=== PATIENT | female | born 1990 | race African-American/Black ===

== ENCOUNTER 2019-01-29 12:50 | Emergency (ER) | payer OTHER, SELFPAY ==
--- NOTE | 2019-01-29 12:58 | DI.RAD.S_ITS ---
PROCEDURE: XR CHEST 1V INDICATIONS: dyspnea TECHNIQUE: One view of the chest was acquired. COMPARISON: None. FINDINGS: Surgical changes and devices: None Lungs and pleura: Lungs are clear. No pleural effusions or pneumothorax. Mediastinum: Mediastinal contours appear normal. Heart size is normal. Bones and chest wall: No suspicious bony lesions. Overlying soft tissues appear unremarkable. IMPRESSION: Normal portable chest. Dictated by: Moises Novak M.D. on 01/29/2019 at 12:38 Approved by: Moises Novak M.D. on 01/29/2019 at 12:39
[2019-01-29 13:00] VITALS: BP 116/83; PULSE 116; RESP 32; TEMP 37.8; O2SAT 99; BMI 31.7
[2019-01-29] MEDS: ALBUTEROL/IPRATROPIUM 3 ML AMPUL INH (13:01)
[2019-01-29 13:05] VITALS: PULSE 112; O2SAT 97
--- NOTE | 2019-01-29 13:09 | ED.SOB ---
HPI - SOB/Dyspnea General Chief Complaint: Shortness of Breath/Dyspnea Stated Complaint: difficulty breathing Time Seen by Provider: 01/29/19 12:50 Source: patient and family Mode of arrival: ambulatory Limitations: no limitations History of Present Illness 28-year-old female occasional smoker without medical problems presents with a chief complaint of relatively sudden onset short of breath and wheeze with upper back pain that started yesterday. She denies any history of asthma or recent upper respiratory infections. She denies any injury. She did recently fly from [place]. She denies use of control, hx of clot, cancer, or injury. She denies chest pain is not dizzy weak or lightheaded. MD Complaint: shortness of breath Onset (ago): hour(s) Context: recent illness and recent travel Severity: moderate Consistency/Duration: constant Relieving factors: nothing Associated symptoms: wheezing Treatment prior to arrival: none Related Data Home oxygen amount: none Previous Rx's Medication Instructions Recorded albuterol sulfate 1 puff INHALATION Q4-6H PRN #8.5 01/29/19 gram albuterol sulfate 2.5 mg INHALATION Q4-6H PRN #90 ml 01/29/19 levofloxacin [Levaquin] 750 mg PO DAILY #7 tab 01/29/19 Allergies Allergy/AdvReac Type Severity Reaction Status Date / Time No Known Drug Allergies Allergy Verified 01/29/19 13:21 Review of Systems Constitutional Denies chills, Denies fever(s), Denies lethargy and Denies weakness Eyes Denies change in vision, Denies eye discharge, Denies irritation and Denies loss of vision ENT Ears, Nose, Mouth, and Throat: Denies change in voice, Denies neck pain and Denies sore throat Cardiovascular Denies chest pain, Denies irregular heart rhythm, Denies lightheadedness, Denies palpitations, Reports dyspnea, Denies dyspnea on exertion and Denies orthopnea Respiratory Denies cough, Reports dyspnea, Denies dyspnea on exertion and Denies wheezing Gastrointestinal Gastrointestinal: Denies abdominal pain, Denies change in bowel habits, Denies diarrhea, Denies nausea and Denies vomiting Genitourinary Denies hematuria, Denies flank pain, Denies urinary incontinence and Denies urinary urgency Musculoskeletal Denies neck pain Integumentary/Breasts Denies pruritus, Denies erythema, Denies rash and Denies wounds Neurologic Denies confusion, Denies loss of vision and Denies weakness Psychiatric Denies anxiety, Denies confusion, Denies depression, Denies homicidal ideation and Denies suicidal ideation Endocrine Denies palpitations Hematologic/Lymphatic Denies easy bruising Allergic/Immunologic Denies wheezing [facility] Social History Smoking Status: Current some day smoker Exam Initial Vital Signs Initial Vital Signs: Vital Signs Temperature 100.0 F H 01/29/19 13:00 Pulse Rate 116 H 01/29/19 13:00 Respiratory Rate 32 H 01/29/19 13:00 Blood Pressure 116/83 01/29/19 13:00 Pulse Oximetry 99 01/29/19 13:00 Const General: cooperative, well developed, acute distress and anxious Nutritional Appearance: well nourished Orientation: alert, awake, oriented x3 and not confused HENMT Head: normocephalic and atraumatic Ears: external ears normal and TM's normal bilaterally Nose: external nose normal and No nasal discharge Face and sinus: sinuses nontender, face symmetric, no sinus tenderness and No dry mucous membranes Mouth: oral mucosae normal and moist mucous membranes Teeth and gingiva: dentition normal Throat: tonsils normal and uvula midline Eyes General: appearance normal, both eyes and all related structures Eyelids: eyelids normal Conjunctivae: conjunctivae normal Sclera: sclerae normal Pupils: PERRL EOM: EOM intact bilaterally Neck Neck: normal visual inspection, trachea midline, No lymphadenopathy, No midline deformity and No JVD Lymphatic: No lymphedema Chest Chest: normal inspection of the chest Resp Effort & Inspection: abnormal respiratory pattern, audible wheezes, respiratory distress and uses accessory muscles Auscultation: no rales, no rhonchi and wheezes Cardio Rate: regular rate Rhythm: regular rhythm Heart Sounds: no click, no gallops, no murmurs and no rubs Pulses: normal peripheral pulses GI Inspection: non-distended Palpation: soft, no hepatosplenomegaly, No guarding, No pulsatile mass and No tender Auscultation: normal bowel sounds Back/Spine/Pelvis Back: No CVA tenderness Cervical Spine: cervical ROM normal and No pain with cervical ROM Thoracic/Lumbar Spine: thoracic and lumbar spine normal to inspection Skin General: no rashes or lesions noted, No jaundice and No petechiae Neuro General: alert, oriented x3, gait normal and no focal motor deficits Speech: speech normal Extrem General: full ROM, no clubbing, cyanosis or edema, no pedal edema and no calf tenderness Psych Appearance: well kempt Mental Status: mental status grossly normal Attitude: cooperative Thought Content: normal and suicidality Judgment: judgment good Course Orders Ordered: ED Orders 01/29/19 12:58 Consult to Respiratory Therapy Evaluate & Treat XR chest 1V Stat EKG-12 Lead Stat 01/29/19 13:01 B Type Natriuretic Peptide Stat Basic Metabolic Panel Stat Complete Blood Count AUTO DIFF Stat D Dimer Stat Magnesium Stat Procalcitonin Stat Troponin & CK Cardiac Panel Stat 01/29/19 13:25 Blood Culture Stat Lactate (Lactic Acid) Stat 01/29/19 13:40 CT angio chest PE protocol Stat Discontinued Medications Albuterol/Ipratropium (Duoneb) 3 ml INH NOW ONE Stop: 01/29/19 12:59 Last Admin: 01/29/19 13:01 Dose: 3 ml Sodium Chloride (Normal Saline 0.9%) 1,000 mls @ 1,000 mls/hr IV BOLUS ONE Stop: 01/29/19 14:15 Last Infusion: 01/29/19 14:56 Dose: 0 mls/hr Infusion: 01/29/19 14:22 Dose: 1,000 mls/hr Infusion: 01/29/19 14:00 Dose: 0 mls/hr Admin: 01/29/19 13:27 Dose: 1,000 mls/hr Vital Signs - 8 hr 01/29/19 13:00 01/29/19 13:30 01/29/19 14:08 Temperature 100.0 F H Pulse Rate 116 H 108 H 98 H Respiratory Rate 32 H 30 H 17 Blood Pressure 116/83 Blood Pressure [Right Arm] 127/73 115/56 L Pulse Oximetry 99 99 01/29/19 15:02 Temperature Pulse Rate 97 H Respiratory Rate 22 Blood Pressure 114/63 Blood Pressure [Right Arm] Pulse Oximetry 100 MDM - SOB/Dyspnea Lab Data Result diagrams: 01/29/19 13:01 01/29/19 13:01 Lab Results 01/29/19 01/29/19 01/29/19 Range/Units 13:01 13:01 13:01 WBC 24.3 H (4.5-11.0) X10^3/uL RBC 4.88 (4.0-5.2) X10^6/uL Hgb 14.0 (12.0-16.0) g/dL Hct 42.0 (36-46) % MCV 86.0 (80-100) fL MCH 28.6 (26-34) PG MCHC 33.3 (30-36) % RDW 14.7 (11.6-14.8) % Plt Count 285 (150-400) X10^3/uL Neut % (Auto) 89.0 H (50-75) % Lymph % (Auto) 6.3 L (25-40) % [place] % (Auto) 3.6 (3-14) % Eos % (Auto) 0.8 L (2-4) % Baso % (Auto) 0.3 (0-2) % Neut # (Auto) 68422 H (6495-0081) /uL Lymph # (Auto) 1500 (7164-1270) /uL [place] # (Auto) 900 (0-900) /uL Eos # (Auto) 200 (0-450) /uL Baso # (Auto) 100 (0-100) /uL D-Dimer 504 H (<230) ng/mL Sodium 137 (137-145) mmol/L Potassium 3.2 L (3.4-5.1) mmol/L Chloride 107 (98-107) mmol/L Carbon Dioxide 20 L (22-32) mmol/L BUN 6 L (7-17) mg/dL Creatinine 0.60 (0.52-1.04) mg/dL Estimated GFR > 60.0 (>60) mL/min BUN/Creatinine Ratio 10.0 (6-22) Glucose 95 (70-100) mg/dL Lactate (0.7-2.1) mmol/L Calcium 9.6 (8.4-10.2) mg/dL Magnesium 1.6 (1.6-2.3) mg/dL Total Creatine Kinase 35 (30-135) U/L CK-MB (CK-2) TNP CK-MB (CK-2) Rel Index TNP Troponin I < 0.012 (0.01-0.034) ng/mL B-Natriuretic Peptide < 100 (<100) Procalcitonin (<0.5) ng/mL 01/29/19 01/29/19 Range/Units 13:01 13:25 WBC (4.5-11.0) X10^3/uL RBC (4.0-5.2) X10^6/uL Hgb (12.0-16.0) g/dL Hct (36-46) % MCV (80-100) fL MCH (26-34) PG MCHC (30-36) % RDW (11.6-14.8) % Plt Count (150-400) X10^3/uL Neut % (Auto) (50-75) % Lymph % (Auto) (25-40) % [place] % (Auto) (3-14) % Eos % (Auto) (2-4) % Baso % (Auto) (0-2) % Neut # (Auto) (0164-4271) /uL Lymph # (Auto) (9892-2411) /uL [place] # (Auto) (0-900) /uL Eos # (Auto) (0-450) /uL Baso # (Auto) (0-100) /uL D-Dimer (<230) ng/mL Sodium (137-145) mmol/L Potassium (3.4-5.1) mmol/L Chloride (98-107) mmol/L Carbon Dioxide (22-32) mmol/L BUN (7-17) mg/dL Creatinine (0.52-1.04) mg/dL Estimated GFR (>60) mL/min BUN/Creatinine Ratio (6-22) Glucose (70-100) mg/dL Lactate 1.8 (0.7-2.1) mmol/L Calcium (8.4-10.2) mg/dL Magnesium (1.6-2.3) mg/dL Total Creatine Kinase (30-135) U/L CK-MB (CK-2) CK-MB (CK-2) Rel Index Troponin I (0.01-0.034) ng/mL B-Natriuretic Peptide (<100) Procalcitonin 0.05 (<0.5) ng/mL Imaging Data CT scan - chest: Radiologist's impression: [facility] DATE TYPE STATUS AUTHOR Hx 01/29/19 13:40 Ang Gunter 01/29/19 12:58 Moises Novak Samantha 28, F0 1990 DEP ER, ED.LOC - Main ED 154.94cm 76.204kg BMI: 31.7kg/m? Shortness of Breath/Dyspnea Search Chart ONSET Today 15:02 Kelsea Valdez 28 F [address] [address] [address] Scan Report Signed Patient: Eulalia ValdezR#: [id number] : 1990Acct:[id number] Age/Sex: 28 / FDate of Service: 01/29/19 Loc: ED Accession Number: [id number] Procedure: CT angio chest PE protocol Ordering Provider: Omari Arevalo D.O. PROCEDURE: CT ANGIO CHEST PE PROTOCOL INDICATIONS: SOB, back pain, tachycardic, travel, tachypnea TECHNIQUE: After the administration of intravenous contrast, 2 mm thick sections acquired from the pulmonary apices to the posterior costophrenic angles. 3-dimensional maximum intensity projection (MIP) coronal and sagittal reformats were then acquired through the thorax. For radiation dose reduction, the following was used: automated exposure control, adjustment of mA and/or kV according to patient size. COMPARISON: None. FINDINGS: Image quality: Excellent. Pulmonary arteries: Pulmonary arteries are normal in size, and demonstrate no intraluminal filling defects to suggest central pulmonary embolism. Lungs and pleura: There are several patchy, ill-defined consolidations and groundglass opacities seen in the right upper lobe. The left lung appears clear. No pleural effusions or pneumothorax. Central and peripheral airways are patent. Mediastinum: Heart size is normal, without pericardial effusion. No mediastinal or hilar adenopathy. Thoracic aorta is normal in caliber and enhancement. Esophagus is normal in caliber, without hiatal hernia. Bones and chest wall: No suspicious bony lesions. Ribs and thoracic spine appear intact throughout. Thyroid gland is unremarkable. No axillary or supraclavicular adenopathy. There are numerous scattered well circumscribed, oval densities seen in the bilateral breast likely representing complicated cysts versus fibroadenomas. Abdomen: Visualized upper abdominal solid organs appear normal in the early arterial phase of enhancement. IMPRESSION: 1. No acute pulmonary emboli. 2. There are several scattered patchy, ill-defined densities in the right upper lobe compatible with multifocal pneumonia. Recommend followup imaging 4-6 weeks after treatment to document resolution of findings. 3. Numerous scattered well defined ovoid densities in the bilateral breasts likely representing complicated cyst versus fibroepithelial lesions. Recommend outpatient bilateral breast ultrasound to further characterize. Dictated by: Ang Gunter M.D. on 01/29/2019 at 14:21 Approved by: Ang Gunter M.D. on 01/29/2019 at 14:27 ECG Data Attestation: I personally reviewed and interpreted this ECG as follows: Prior ECG tracings: not available for review Interpretation: EKG is sinus tach rate [104] and free of any signs of ischemia or ectopy. No ST segmental elevation or depression. No T wave inversions MDM Narrative Medical decision making narrative: 28F without history of respiratory problems presents with SOB. She is never hypoxic, but is definitely anxious which may have contributed some to tachypnea and tachycardia. Given recent travel and SOB out of proportion to exam a DDimer was odered and when found high a CTA was ordered. No PE noted, but RUL PNA in addition to incidental finding of B/L breast cysts. Patient stable and requests Levaquin be sent to pharmacy as opposed to getting first dose now. Patient and given return precautions and have had questions answered to their apparent satisfaction. Discharge Plan Departure Patient Disposition: Home Clinical Impression: Community acquired pneumonia Qualifiers: Laterality: right Lung location: upper lobe of lung Qualified Code(s): J18.1 - Lobar pneumonia, unspecified organism Discharge Date/Time: 01/29/19 15:02 Interventions: ED Discharge Assessment Last Done: 01/29/19 15:02 Instructions: DI for Pneumonia -- Adult Activity Restrictions/Additional Instructions: *You have been diagnosed with [ acute community acquired pneumonia] *What to do: *Take medications as directed: electronically transmitted to [facility] in [place] at your request *Follow up with your primary care provider in 2-3 days, call for an appointment. Let them know you were seen in the Emergency Department and that we ask that you be seen in follow up *Return to ER if you should have any new, worsening or concerning symptoms *In addition to the pneumonia noted on your CT scan there was mention of multiple small lesions in both breasts which radiology states are cysts versus fibroepithelial lesions. Please have a discussion with your primary care provider to schedule an outpatient ultrasound to further characterize. Prescriptions: New albuterol sulfate 2.5 mg /3 mL (0.083 %) solution for nebulization 2.5 mg INHALATION Q4-6H PRN (Reason: bronchospasm) Qty: 90 RF: 0 levofloxacin [Levaquin] 750 mg tablet 750 mg PO DAILY Qty: 7 RF: 0 albuterol sulfate 90 mcg/actuation HFA aerosol inhaler 1 puff INHALATION Q4-6H PRN (Reason: bronchospasm) Qty: 8.5 RF: 0
[2019-01-29 13:12] LABS: Add Manual Diff / Slide Review NO; Basophils Absolute Auto 100 /uL (0-100); Basophils Percent Auto 0.3 % (0-2); Eosinophils Absolute Auto 200 /uL (0-450); Eosinophils Percent Auto 0.8 % (2-4); Lymphocytes Absolute Auto 1500 /uL (1100-4500); Lymphocytes Percent Auto 6.3 % (25-40); Mean Corpuscular HGB Conc 33.3 % (30-36); Mean Corpuscular Hemoglobin 28.6 PG (26-34); Monocytes Absolute Auto 900 /uL (0-900); Monocytes Percent Auto 3.6 % (3-14); Neutrophils Absolute Auto 21600 /uL (1500-7000); Platelet Count 285 X10^3/uL (150-400); Red Blood Cell Count 4.88 X10^6/uL (4.0-5.2); Red Cell Distribution Width 14.7 % (11.6-14.8); White Blood Cell Count 24.3 X10^3/uL (4.5-11.0)
[2019-01-29 13:23] LABS: Blood Urea Nitrogen 6 mg/dL (7-17); Calcium 9.6 mg/dL (8.4-10.2); Carbon Dioxide 20 mmol/L (22-32); Chloride 107 mmol/L (98-107); Creatine Kinase 35 U/L (30-135); Estimated Glomerular Filt Rate > 60.0 mL/min (>60); Glucose 95 mg/dL (70-100); HEMOLYSIS < 15 (0-50); Magnesium 1.6 mg/dL (1.6-2.3); Potassium 3.2 mmol/L (3.4-5.1); Sodium 137 mmol/L (137-145)
[2019-01-29] MEDS: SODIUM CHLORIDE 0.9% 1,000 ML 1000 ML IV (13:27)
[2019-01-29 13:29] LABS: D Dimer 504 ng/mL (<230)
[2019-01-29 13:30] VITALS: BP 127/73; PULSE 108; RESP 30
[2019-01-29 13:34] LABS: Troponin I < 0.012 ng/mL (0.01-0.034)
[2019-01-29 13:39] LABS: B Type Natriuretic Peptide < 100 (<100)
--- NOTE | 2019-01-29 13:40 | DI.CT.S_ITS ---
PROCEDURE: CT ANGIO CHEST PE PROTOCOL INDICATIONS: SOB, back pain, tachycardic, travel, tachypnea TECHNIQUE: After the administration of intravenous contrast, 2 mm thick sections acquired from the pulmonary apices to the posterior costophrenic angles. 3-dimensional maximum intensity projection (MIP) coronal and sagittal reformats were then acquired through the thorax. For radiation dose reduction, the following was used: automated exposure control, adjustment of mA and/or kV according to patient size. COMPARISON: None. FINDINGS: Image quality: Excellent. Pulmonary arteries: Pulmonary arteries are normal in size, and demonstrate no intraluminal filling defects to suggest central pulmonary embolism. Lungs and pleura: There are several patchy, ill-defined consolidations and groundglass opacities seen in the right upper lobe. The left lung appears clear. No pleural effusions or pneumothorax. Central and peripheral airways are patent. Mediastinum: Heart size is normal, without pericardial effusion. No mediastinal or hilar adenopathy. Thoracic aorta is normal in caliber and enhancement. Esophagus is normal in caliber, without hiatal hernia. Bones and chest wall: No suspicious bony lesions. Ribs and thoracic spine appear intact throughout. Thyroid gland is unremarkable. No axillary or supraclavicular adenopathy. There are numerous scattered well circumscribed, oval densities seen in the bilateral breast likely representing complicated cysts versus fibroadenomas. Abdomen: Visualized upper abdominal solid organs appear normal in the early arterial phase of enhancement. IMPRESSION: 1. No acute pulmonary emboli. 2. There are several scattered patchy, ill-defined densities in the right upper lobe compatible with multifocal pneumonia. Recommend followup imaging 4-6 weeks after treatment to document resolution of findings. 3. Numerous scattered well defined ovoid densities in the bilateral breasts likely representing complicated cyst versus fibroepithelial lesions. Recommend outpatient bilateral breast ultrasound to further characterize. Dictated by: Ang Gunter M.D. on 01/29/2019 at 14:21 Approved by: Ang Gunter M.D. on 01/29/2019 at 14:27
[2019-01-29 13:50] LABS: Procalcitonin 0.05 ng/mL (<0.5)
[2019-01-29 13:58] LABS: Lactate (Lactic Acid) 1.8 mmol/L (0.7-2.1)
[2019-01-29 14:08] VITALS: BP 115/56; PULSE 98; RESP 17; O2SAT 99
[2019-01-29 15:02] VITALS: BP 114/63; PULSE 97; RESP 22; O2SAT 100
== END 2019-01-29 15:02 | disposition home or self-care (01) ==
PROVIDERS: Emergency Provider Emergency Medicine
DX: J18.1 Lobar pneumonia, unspecified organism (principal); R00.0 Tachycardia, unspecified
CPT/HCPCS: 36415; 36591; 71045; 71275; 80048; 82550; 83605; 83735; 83880; 84145; 84484; 85025; 85379; 87040; 93005; 94640; 96360; 99284; 99285; Q9967

== ENCOUNTER → 2019-12-01 10:47 | Outpatient (CLI) | payer OTHER, SELFPAY ==
--- NOTE | 2019-12-01 10:48 | DI.US.S_ITS ---
PROCEDURE: US OB LIMITED INDICATIONS: HISTORY LOW-LYING PLACENTA OUTSIDE/PRIOR DATING DATA: Last menstrual period (LMP): Unknown LMP-based estimated date of delivery (SCOTT): Not applicable First dating scan (date and location): Unavailable Estimated date of delivery (SCOTT) from first dating scan: Unknown TECHNIQUE: Real-time scanning was performed of the fetus, with image documentation. Endovaginal scanning: For better visualization of the cervix and lower placenta. COMPARISON: None. FINDINGS: A single living intrauterine gestation is present. Presentation: Vertex Placenta: Placental position is posterior. Deep to shadowing from the head, the cervix and placental edge are not able to be seen in the same image. Transvaginal imaging also does not visualize the placenta edge well. It does demonstrate that the inferior edge of the placenta is not within 4 cm of the internal cervical os. Amniotic fluid index: 12.9 cm, normal range is 5-24 cm. heart rate: 136 beats per minute. Maternal cervical canal: 3.4 cm long. IMPRESSION: 1. Normal posterior placenta without transvaginal evidence of low-lying placenta. 2. Single living intrauterine fetus is in vertex presentation and shadowing from the head obscures visualization of the cervix and placenta in the same image. Dictated by: Mattie Dickinson M.D. on 12/01/2019 at 11:35 Approved by: Mattie Dickinson M.D. on 12/01/2019 at 11:44
== END ==
PROVIDERS: PCP Family Medicine; Referring Provider Obstetrics & Gynecology; Visit Provider Obstetrics & Gynecology
DX: Z3A.33 33 weeks gestation of pregnancy (principal)
CPT/HCPCS: 76815

== ENCOUNTER → 2019-12-14 10:17 | Outpatient (CLI) | payer OTHER, SELFPAY ==
[2019-12-15 11:08] LABS: Strep Grp B PCR NEG for Grp B Strep
== END ==
PROVIDERS: PCP Family Medicine; Visit Provider Obstetrics & Gynecology
DX: Z34.83 Encounter for supervision of other normal pregnancy, third trimester (principal); Z3A.35 35 weeks gestation of pregnancy
CPT/HCPCS: 87653

== ENCOUNTER 2020-01-11 11:37 | Outpatient (CLI) | payer OTHER, SELFPAY | END 2020-01-11 12:16 | disposition home or self-care (01) | LOC: LABOR 11:49 → OB 01-13 11:56 | PROVIDERS: PCP Family Medicine; Referring Provider Obstetrics & Gynecology; Visit Provider Obstetrics & Gynecology | DX: O36.8130 Decreased fetal movements, third trimester, not applicable or unspecified (principal); Z3A.39 39 weeks gestation of pregnancy | CPT/HCPCS: 59025; G0378; G0379 ==

== ENCOUNTER 2020-01-19 18:35 | Inpatient (IN) | payer OTHER, SELFPAY ==
[2020-01-19] MEDS: DINOPROSTONE VAG (CERVIDIL) 10 MG VAG (20:41)
[2020-01-19 21:03] LABS: Add Manual Diff / Slide Review NO; Basophils Absolute Auto 0 /uL (0-100); Basophils Percent Auto 0.3 % (0-2); Eosinophils Absolute Auto 100 /uL (0-450); Eosinophils Percent Auto 0.9 % (2-4); Hematocrit 40.2 % (36-46); Hemoglobin 13.5 g/dL (12.0-16.0); Lymphocytes Absolute Auto 2100 /uL (1100-4500); Mean Corpuscular HGB Conc 33.5 % (30-36); Mean Corpuscular Hemoglobin 29.8 PG (26-34); Mean Corpuscular Volume 88.9 fL (80-100); Monocytes Absolute Auto 600 /uL (0-900); Monocytes Percent Auto 3.9 % (3-14); Neutrophils Absolute Auto 12300 /uL (1500-7000); Neutrophils Percent Auto 80.9 % (50-75); Platelet Count 226 X10^3/uL (150-400); Red Blood Cell Count 4.52 X10^6/uL (4.0-5.2); Red Cell Distribution Width 15.9 % (11.6-14.8); White Blood Cell Count 15.2 X10^3/uL (4.5-11.0)
[2020-01-19 21:29] LABS: COVID19 -Nasal RAPID Negative (Negative)
--- NOTE | 2020-01-19 21:49 | PM.OBHP.1 ---
OB HPI Date/Time Date of admission: 01/19/20 Date Patient Seen: 01/19/20 Time Patient Seen: 08:30 History of Present Condition Chief complaint: Induction of labor : 3 Para: 1 Estimated Date of Delivery: 01/13/20 Estimated Gestational Age (weeks): 40wk6d Narrative: Kelsea Valdez is a 29 year old female who is being admitted at 40 weeks 6 days for induction of labor due to postdates. Her SCOTT is 01/13/2020, set by LMP and consistent with an 11 week ultrasound. Her has been uncomplicated. EFW 20% She received Tdap during . Indications Indication for induction OB: post dates History of Present care: good care Preadmission Labs Blood type: A (+) positive -: Antibody screen: negative, GBS status: negative, HBsAG: negative, HIV: negative and RPR/VDLR: negative -: Chlamydia screen: not detected and Gonorrhea screen: not detected -: Rubella: immune and Varicella: immune Integrated screen: normal 1 hr GTT: 95 Prior (ies) History: : Spontaneous Ab, 2017 at 39 weeks, male 6lb8oz Evaluation Evaluation Baseline heart rate: 135 Variability: Moderate (11-25) monitor accelerations: Present monitor decelerations: Absent Category of Tracing: I Cervical dilation (cm): 3 Cervical effacement (%): 20 (cervix posterior, medium consistency) station: -3 Laboratory results: Laboratory Tests 01/19/20 01/19/20 01/19/20 18:45 20:10 20:10 WBC 15.2 H RBC 4.52 Hgb 13.5 Hct 40.2 MCV 88.9 MCH 29.8 MCHC 33.5 RDW 15.9 H Plt Count 226 Neut % (Auto) 80.9 H Lymph % (Auto) 14.0 L [place] % (Auto) 3.9 Eos % (Auto) 0.9 L Baso % (Auto) 0.3 Neut # (Auto) 26238 H Lymph # (Auto) 2100 [place] # (Auto) 600 Eos # (Auto) 100 Baso # (Auto) 0 COVID-19 PCR Negative Blood Type A Positive Antibody Screen Negative PFSH Social History marital status: household members: spouse and children pets and animals: No education level: college occupational status: unemployed current occupational exposures/hazards: No special miguel needs: No Smoking Status: Former smoker second hand exposure: No substance use type: does not use Meds Home Medications and Allergies Home Medications Medication Instructions Recorded Confirmed Type prenat.vits,yaneth,[id number] 1 tab PO DAILY 11/02/19 01/18/20 History Allergies Allergy/AdvReac Type Severity Reaction Status Date / Time No Known Drug Allergies Allergy Verified 01/18/20 16:23 Review of Systems Review of Systems Narrative: Denies headache, leakage of fluid or vaginal bleeding. Not feeling any contractions. Reports good movement. Exam Vital Signs (past 8 hours): Afebrile BP 127/75 pulse 68 Narrative Exam Narrative: General well-appearing gravid female Abdomen gravid, nontender Extremities: Trace pedal edema Cervix 3/20%/-3. Cervix is posterior, medium consistency. Cervidil placed posterior to the cervix at approximately 8:40 p.m. Objective Labs Result Diagrams: 01/19/20 20:10 Labs: Laboratory Results - last 24 hr 01/19/20 01/19/20 01/19/20 18:45 20:10 20:10 WBC 15.2 H RBC 4.52 Hgb 13.5 Hct 40.2 MCV 88.9 MCH 29.8 MCHC 33.5 RDW 15.9 H Plt Count 226 Neut % (Auto) 80.9 H Lymph % (Auto) 14.0 L [place] % (Auto) 3.9 Eos % (Auto) 0.9 L Baso % (Auto) 0.3 Neut # (Auto) 71198 H Lymph # (Auto) 2100 [place] # (Auto) 600 Eos # (Auto) 100 Baso # (Auto) 0 COVID-19 PCR Negative Blood Type A Positive Antibody Screen Negative Assessment and Plan Assessment and Plan Assessment and Plan narrative: 29-year-old female, 40 wk6 day , GBS negative Admitted for induction of labor due to postdates. NST performed, reactive. Category 1 EFM. CBC, type and screen collected. Cervidil placed for cervical ripening at 8:40 p.m.
[2020-01-19] MEDS: ZOLPIDEM 5 MG TABLET PO (23:11)
[2020-01-19 23:50] VITALS: BP 127/75
[2020-01-20] MEDS: ACETAMINOPHEN 325 MG TABLET 650 MG PO ×2 (03:41→07:44)
[2020-01-20] MEDS: fentaNYL 100 MCG/2 ML INJ 50 MCG IV (05:42)
[2020-01-20] MEDS: OXYTOCIN 10 UNIT/ML VIAL 20 UNIT (05:43)
[2020-01-20] MEDS: METHYLERGONOVINE 0.2 MG/ML VIAL IM (06:00)
[2020-01-20] MEDS: LACTATED RINGERS 1,000 ML 125 ML IV (06:30)
[2020-01-20] MEDS: miSOPROStoL 200 MCG TABLET 600 MCG PR (06:45)
[2020-01-20 07:44] VITALS: TEMP 36.9
--- NOTE | 2020-01-20 07:46 | PM.OBPRVD ---
Labor & Delivery Delivery date: 01/20/20 Intrapartal events: Bleeding (Mildly heavier bleeding. Multiple clots evacuated from lower uterine segment and then uterus twice. Treated with Pitocin, Methergine and misoprostol with improvement) Cervical ripening method: per misoprostal protocol Induction method: none Delivery monitor: external FHT Route of delivery: L&D Laceration Description: Perineal - 2nd Degree Delivery repair: chromic Estimated blood loss (mL): 500 Anesthesia type: Local (1% lidocaine, 20 ml, for perineal repair) Complications: none Narrative: She progressed into labor with the Cervidil. Cervical exam was 4 cm/80% effaced when she appeared uncomfortable consistent with labor. Cervidil was removed. She quickly progressed over the next few hours to 7 cm. Within 15 minutes she felt significant rectal pressure and began pushing spontaneously. On my exam she was completely dilated with bulging membranes, 2+ station and was pushing the head to the introitus. She continued to push with the same contraction and delivered the head. She was able to slow the push to finish delivering the head in a controlled fashion. Perineum was supported. Tight nuchal cord x1 was noted. As I was clamping the cord on the neck, the patient could not stop herself from pushing and was pushing the shoulders out, were delivered, while cord was being clamped and cut. Shoulders delivered with ease. Remainder of the body was then delivered with ease and the infant was placed on the maternal abdomen. Infant girl appeared vigorous and cried spontaneously. Time of 0533. Placenta delivered 4 minutes later. Small gush of blood seen and placenta was noted to be in the vagina. Patient gave a push and placenta delivered with some trailing membranes. Very end of the membranes seem to possibly have torn off. On digital exam I felt some membranes at the cervix. These were grasped with my fingers and removed. Some clots were also removed at this time from the cervix. She only had some normal light bleeding at this time and fundal massage was given and routine Pitocin started. While inspecting the perineum she did have a heavier steady trickle blood. Repeat exam performed in some large clots noted, removed from the cervix and lower uterine segment. Fentanyl 50 mcg IV given for removing the clots from the lower uterine segment. Methergine 0.2 mg IM also given at this time. Inspection of the perineum revealed a second-degree perineal laceration. Vaginal sidewalls were intact. Periurethral area only showed a minimal left periurethral abrasion. Cervix had palpated to be intact. Bed was broken at this time and she was placed in stirrups for a perineal repair. Approximately 20 mL of 1% lidocaine was given and the perineal laceration was repaired in the usual fashion with #3 chromic. During the repair she began having again a steady trickle of blood. More than usual bleeding. At this time repeat inspection revealed some large clots at the cervix. Repeat exam several clots removed from the lower uterine segment. Upper uterus was [place] down well, and I could not pass my fingers into the upper uterus. No palpable clots felt. At this time misoprostol 600 mcg per rectum was given. Subsequently her bleeding, lochia remained normal wall finishing the repair. Total medications given Pitocin 30 units in 1000 mL LR, to be followed by 10 units in 1000 mL LR at 125 mL/hour, Methergine 0.2 mg IM and misoprostol 600 mcg per rectum She did well and was left to recover in good condition. Weight of the baby was 7 lb 3 oz . Apgars 8 and 9. [place] Baby 1: Infant gender: Female Presentation: vertex position: Right Occiput Anterior Placenta delivery description: Spontaneous and Normal Configuration cord vessel description: 3 Vessels score (1 min): 8 score (5 min): 9 Narrative: Vigorous infant. Cried spontaneously. Was breast-feeding well about 1 hour after delivery Plan for aftercare: Left to recover in good condition
[2020-01-20] MEDS: LIDOCAINE 1% 20 ML (07:48)
[2020-01-20] MEDS: OXYTOCIN 10 UNIT/ML VIAL IM (07:55)
[2020-01-20] MEDS: LACTATED RINGERS 1,000 ML 100 ML IV (07:56)
[2020-01-20] MEDS: DOCUSATE 100 MG CAPSULE PO (11:00)
[2020-01-20] MEDS: OXYCODONE IR 5 MG TABLET PO ×2 (15:11→20:00)
[2020-01-21] MEDS: IBUPROFEN 600 MG TABLET PO ×2 (02:24→08:07)
[2020-01-21 06:20] LABS: Add Manual Diff / Slide Review NO; Basophils Absolute Auto 0 /uL (0-100); Basophils Percent Auto 0.3 % (0-2); Eosinophils Absolute Auto 200 /uL (0-450); Eosinophils Percent Auto 1.3 % (2-4); Hematocrit 36.1 % (36-46); Hemoglobin 11.9 g/dL (12.0-16.0); Lymphocytes Absolute Auto 2200 /uL (1100-4500); Lymphocytes Percent Auto 13.9 % (25-40); Mean Corpuscular Hemoglobin 29.4 PG (26-34); Mean Corpuscular Volume 89.1 fL (80-100); Monocytes Absolute Auto 500 /uL (0-900); Monocytes Percent Auto 3.3 % (3-14); Neutrophils Absolute Auto 12600 /uL (1500-7000); Neutrophils Percent Auto 81.2 % (50-75); Platelet Count 161 X10^3/uL (150-400); Red Blood Cell Count 4.05 X10^6/uL (4.0-5.2); Red Cell Distribution Width 15.7 % (11.6-14.8); White Blood Cell Count 15.5 X10^3/uL (4.5-11.0)
[2020-01-21] MEDS: DOCUSATE 100 MG CAPSULE PO (08:07)
[2020-01-21 09:42] VITALS: BP 118/82; PULSE 83; RESP 18; TEMP 36.4
--- NOTE | 2020-01-21 10:03 | P.DS_ITS ---
Discharge Providers Provider Date of admission: 01/19/20 18:35 Discharge Date: 01/21/20 Primary care physician: Khalida Dill MD Consults: 01/21/20 07:27 Consult to Fan Blade Truer Routine Comment: Discharge provider: Ariella Hawk MD Summary Hospital Course Date Patient Seen: 01/21/20 Time Patient Seen: 09:30 Procedures: Spontaneous vaginal delivery Hospital Course: The pt was admitted for postdates IOL. She received cervidil for induction, and rapidly progressed into active labor. She had a of a viable baby girl at 5:33 on 01/19. A second degree perineal laceration was repaired. The pt did have a hemorrhage with EBL 500cc due to retained clots, that was controlled with manual extraction of clots, pitocin, metherine, and cytotec. , there were no complications. At the time of discharge she was voidi ng, ambulating, and passing flatus. Her lochia was decreasing appropriately. Her pain was well controlled. She was with good latch. She will f/u in 6 weeks for her check. She desires a tubal ligation for contraception. Peripartum Data Delivery Method: Natural Vaginal Episiotomy description: None Gray 1: Gender: Female Disposition of : home Discharge Diagnosis (1) Spontaneous vaginal delivery: Status: Acute Status at Discharge Cognitive/behavioral status at discharge: oriented Functional status at discharge: independent ambulation Overall status at discharge: patient is progressing back to baseline Time Spent with Patient Time attestation: Total time spent providing and/or coordinating discharge services: Time spent: Greater than 30 minutes Objective Labs Result Diagrams: 01/21/20 05:31 Labs: Laboratory Results - last 24 hr 01/21/20 05:31 WBC 15.5 H RBC 4.05 Hgb 11.9 L Hct 36.1 MCV 89.1 MCH 29.4 MCHC 33.0 RDW 15.7 H Plt Count 161 Neut % (Auto) 81.2 H Lymph % (Auto) 13.9 L [place] % (Auto) 3.3 Eos % (Auto) 1.3 L Baso % (Auto) 0.3 Neut # (Auto) 61000 H Lymph # (Auto) 2200 [place] # (Auto) 500 Eos # (Auto) 200 Baso # (Auto) 0 Exam Vital Signs (past 8 hours): - 01/21/20 09:42 Temperature 97.6 F Pulse Rate 83 Respiratory Rate 18 Blood Pressure 118/82 Narrative Exam Narrative: Gen: NAD, sitting comfortably in bed, appears well CV: RRR, no murmurs Resp: clear to auscultation bilaterally Abd: soft, nontender, nondistended, fundus firm and below the umbilicus Ext: no edema Discharge Plan Discharge Plan Patient Disposition: Home Discharge orders & Medications Prescriptions: New acetaminophen 325 mg Tablet 650 mg PO Q4HR PRN (Reason: Fever/Mild Pain (1-3)) Qty: 30 RF: 0 Dermoplast (with menthol) 20-0.5 % Aerosol 1 spray topical Q1HR PRN (Reason: perineal pain) Qty: 54 RF: 0 docusate sodium [DOK] 100 mg Capsule 100 mg PO DAILY Qty: 30 RF: 0 ibuprofen 600 mg Tablet 600 mg PO Q6HR PRN (Reason: Pain, Mild (1-3)) Qty: 30 RF: 0 Tlo-R-Uqiswm Cream 1 applic topical PRN PRN (Reason: Tenderness) Qty: 15 RF: 0 Continued prenat.vits,yaneth,pxi-gyal-dcfqo Tablet 1 tab PO DAILY RF: 0 Follow up/Referrals: Khalida Dill MD [Primary Care Provider] - Trish Taylor MD [Physician] - 6 Weeks (Please make an appointment to see in 6 weeks for check.) Diet/Activity/Treatments Diet: Regular Visit Report/Discharge Packet Instructions: DI for Labor and Delivery, Vaginal Visit Report Forms: Patient Portal/API, Stroke Signs & Symptoms Discharge Data Primary Care Provider: Khalida Dill Discharges patient from system. Discharge Date/Time: 01/21/20 12:00
== END 2020-01-21 12:00 | disposition home or self-care (01) | DRG 768 ==
PROVIDERS: Admitting Provider Obstetrics & Gynecology; PCP Family Medicine; Referring Provider Obstetrics & Gynecology; Visit Provider Obstetrics & Gynecology
DX: O48.0 Post-term pregnancy (principal); Z37.0 Single live birth; O72.1 Other immediate postpartum hemorrhage; Z3A.40 40 weeks gestation of pregnancy; O70.1 Second degree perineal laceration during delivery; O69.81X0 Labor and delivery complicated by cord around neck, without compression, not applicable or unspecified; Z11.59 Encounter for screening for other viral diseases
CPT/HCPCS: 36415; 59050; 59200; 59410; 85025; 86850; 86900; 86901; 87635; G0379; J2210; J2590; J3010; S0191

== ENCOUNTER 2020-01-24 17:59 | Observation (INO) | payer OTHER, SELFPAY ==
[2020-01-24] VITALS (15 sets, daily range): BP systolic 106–130; BP diastolic 62–79; PULSE 98–134; RESP 16–25; TEMP 36.1–40; O2SAT 95–100; BMI 37.0
--- NOTE | 2020-01-24 18:24 | DI.US.S_ITS ---
PROCEDURE: US PELVIC COMPLETE INDICATIONS: 3 DAYS POST ; FEVER; POSSIBLE RPOC TECHNIQUE: Real-time scanning was performed of the pelvic organs, with image documentation. Additional endovaginal scanning was necessary due to incomplete visualization of the adnexal and endometrial structures by transabdominal scanning. COMPARISON: None. FINDINGS: Transabdominal scanning: Kidney is not imaged. No pathologic free abdominal or pelvic fluid. Endovaginal scanning: Uterus: Uterus is normal immediately in size at 19.4 x 8.9 x 12.9 cm. there is echogenic material within the endometrial cavity measuring 4.0 x 1.7 x 2.5 cm. There is no vascularity associated with this material. Ovaries: Right ovary is unremarkable, measuring 2.4 x 2.6 x 2.9 cm. Left ovary not visualized. IMPRESSION: 1. Uterus has a typical appearance, measuring 19.4 cm in length. 2. Echogenic material within the endometrial cavity most likely represents clot. There is no vascularity to this material, as this typically would be the case if this represented retained products of conception Dictated by: Dawson Gutierrez M.D. on 01/24/2020 at 19:29 Approved by: Dawson Gutierrez M.D. on 01/24/2020 at 19:33
[2020-01-24 18:28] LABS: Add Manual Diff / Slide Review NO; Basophils Absolute Auto 0 /uL (0-100); Basophils Percent Auto 0.3 % (0-2); Eosinophils Absolute Auto 0 /uL (0-450); Eosinophils Percent Auto 0.4 % (2-4); Hematocrit 35.5 % (36-46); Hemoglobin 12.2 g/dL (12.0-16.0); Lymphocytes Absolute Auto 500 /uL (1100-4500); Lymphocytes Percent Auto 5.7 % (25-40); Mean Corpuscular HGB Conc 34.4 % (30-36); Mean Corpuscular Volume 87.3 fL (80-100); Monocytes Absolute Auto 300 /uL (0-900); Monocytes Percent Auto 3.7 % (3-14); Neutrophils Absolute Auto 8200 /uL (1500-7000); Neutrophils Percent Auto 89.9 % (50-75); Platelet Count 183 X10^3/uL (150-400); Red Blood Cell Count 4.06 X10^6/uL (4.0-5.2); Red Cell Distribution Width 15.6 % (11.6-14.8); White Blood Cell Count 9.1 X10^3/uL (4.5-11.0)
[2020-01-24] MEDS: SODIUM CHLORIDE 0.9% 1,000 ML 1000 ML IV ×2 (18:28→21:08)
[2020-01-24] MEDS: ACETAMINOPHEN 325 MG TABLET 975 MG PO (18:29)
[2020-01-24 18:33] LABS: Alanine Aminotransferase 24 IU/L (<35); Albumin 3.4 g/dL (3.5-5.0); Alkaline Phosphatase 143 U/L (38-126); Aspartate Aminotransferase 40 IU/L (14-36); BUN Creatinine Ratio 11.1 (6-22); Bilirubin Total 0.9 mg/dL (0.2-1.3); Blood Urea Nitrogen 7 mg/dL (7-17); Calcium 8.5 mg/dL (8.4-10.2); Carbon Dioxide 22 mmol/L (22-32); Chloride 105 mmol/L (98-107); Estimated Glomerular Filt Rate > 60.0 mL/min (>60); Globulin 3.3 g/dL (1.7-4.1); Glucose 114 mg/dL (70-100); HEMOLYSIS < 15 (0-50); Potassium 3.3 mmol/L (3.4-5.1); Sodium 134 mmol/L (137-145); Total Protein 6.7 g/dL (6.3-8.2)
[2020-01-24 18:34] LABS: Lactate (Lactic Acid) 1.4 mmol/L (0.7-2.1)
--- NOTE | 2020-01-24 18:41 | PC.NURSE ---
p/p 4 days ago, developed chills and schevering yesterda, today with fever of 104, with headaache, denies vomiting, denies abdominal pain, reports minimal vaginal bleeding, breast feeding and tolerating fluids.
[2020-01-24] MEDS: GENTAMICIN 450 MG in SODIUM CHLORIDE 0.9% 100 ML 111.25 ML IV (19:31)
[2020-01-24 20:18] LABS: COVID19 -Nasal RAPID Negative (Negative)
[2020-01-24] MEDS: IBUPROFEN 400 MG TABLET PO (20:30)
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
[2020-01-24] MEDS: CLINDAMYCIN 900 MG/50 ML PIGGYBACK 50 MG IV (21:07)
[2020-01-24 21:29] LABS: Bacteria Urine Occasional (0-1); Culture Indicated Urine Specimen Cultured; RBC Urine 30-100/HPF (0-5/HPF); Squamous Epithelial Cell Urine 1-5 /HPF (0-5/HPF); Transitional Epi Cells Urine 5-10/HPF (0-5/HPF); WBC Urine 30-100/HPF (0-5/HPF)
--- NOTE | 2020-01-24 22:26 | PC.NURSE ---
@[id number] pt transferred to floor from ED with ; basinpeter and double breast pump in room; pt oriented to room, call light; lights dimmed and patient pumping
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
[2020-01-25] VITALS: BP 100/69; PULSE 84; RESP 16; TEMP 35.9; O2SAT 99
[2020-01-25] MEDS: SODIUM CHLORIDE 0.9% 1,000 ML 100 ML IV (00:39)
--- NOTE | 2020-01-25 03:56 | PC.NURSE ---
Pt is 4 days post-. Baby is at home with father. Pt using double breast pump AxOx4, afebrile, very fatigued appearing. No complaints. NS@100mL/hr Diana-pads given to pt for her mentioning having had some scant vaginal bleeding
[2020-01-25] MEDS: CLINDAMYCIN 900 MG/50 ML PIGGYBACK 50 MG IV ×3 (06:00→22:20)
[2020-01-25 06:57] LABS: Add Manual Diff / Slide Review NO; Basophils Absolute Auto 0 /uL (0-100); Basophils Percent Auto 0.1 % (0-2); Eosinophils Absolute Auto 100 /uL (0-450); Eosinophils Percent Auto 1.6 % (2-4); Hematocrit 34.9 % (36-46); Hemoglobin 11.8 g/dL (12.0-16.0); Lymphocytes Absolute Auto 800 /uL (1100-4500); Lymphocytes Percent Auto 9.3 % (25-40); Mean Corpuscular HGB Conc 33.8 % (30-36); Mean Corpuscular Hemoglobin 29.9 PG (26-34); Mean Corpuscular Volume 88.5 fL (80-100); Monocytes Absolute Auto 400 /uL (0-900); Neutrophils Absolute Auto 7800 /uL (1500-7000); Platelet Count 168 X10^3/uL (150-400); Red Blood Cell Count 3.95 X10^6/uL (4.0-5.2); Red Cell Distribution Width 15.5 % (11.6-14.8); White Blood Cell Count 9.2 X10^3/uL (4.5-11.0)
[2020-01-25 07:01] LABS: Alanine Aminotransferase 24 IU/L (<35); Albumin 2.8 g/dL (3.5-5.0); Albumin Globulin Ratio 0.9 (1.0-2.8); Alkaline Phosphatase 111 U/L (38-126); Aspartate Aminotransferase 44 IU/L (14-36); BUN Creatinine Ratio 16.7 (6-22); Bilirubin Total 0.8 mg/dL (0.2-1.3); Blood Urea Nitrogen 9 mg/dL (7-17); Calcium 7.9 mg/dL (8.4-10.2); Carbon Dioxide 21 mmol/L (22-32); Chloride 108 mmol/L (98-107); Estimated Glomerular Filt Rate > 60.0 mL/min (>60); Globulin 3.1 g/dL (1.7-4.1); Glucose 93 mg/dL (70-100); HEMOLYSIS 41 (0-50); Potassium 3.4 mmol/L (3.4-5.1); Sodium 135 mmol/L (137-145); Total Protein 5.9 g/dL (6.3-8.2)
[2020-01-25 08:00] VITALS: BP 112/71; PULSE 99; RESP 18; TEMP 36.8; O2SAT 100
[2020-01-25 08:14] LABS: Gentamicin Random 1.7 ug/mL (1.0-8.0)
[2020-01-25] MEDS: DOCUSATE 100 MG CAPSULE PO (08:22)
[2020-01-25] MEDS: ACETAMINOPHEN 325 MG TABLET 650 MG PO ×2 (08:22→18:14)
[2020-01-25 11:00] VITALS: BP 110/78; PULSE 95; RESP 18; TEMP 36.4; O2SAT 99
--- NOTE | 2020-01-25 11:49 | PC.NURSE ---
Addendum entered by Magda Bateman R.N. 01/25/20 14:01: Around 1310, after Dr. Taylor saw pt and stated that pt would be staying another night, pt was teary and visibly upset. Support provided. Pt stated she understood. Pt declined ambulation at this time. Stated her will be coming to visit later today and will bring in clothes for her and she would like a shower when he is here. No other voiced concerns. Original Note: Day Shift- pt A&OX4, pleasant, able to make her needs known using call light. Pt is face to face calling family on her phone. Pt c/o 5/10 headache this AM, prn Tylenol given at 0820 with good effect. Pt OOB X2 to void, small clots present, blood tinged urine. Diana pad changed X1 by pt and stated having approx 30% of drainage on pad. Pt states feeling overall better today and hoping to discharge home later this evening after speaking with Dr. Gallardo using breast pump indep, had no questions or concerns. Breast milk placed in bottles by pt, labeled by this RN and placed in fridge.
--- NOTE | 2020-01-25 12:44 | CM.IDA ---
Initial DCP Assessment Note: Patient is a 29 yo female, resident of [place]. Patient admitted under observation, PPD 5 w/onset of fever and chills. PCP: Khalida Dill Payer: Marshall Lemons Reviewed chart. Met w/patient to introduce role. Patient has a 2 yo and at home w/Dad currently. Patient is indp. and active at baseline w/good family support and expects no barriers to safe return home, she is hopeful it will be this afternoon/evening. Patient has been pumping and states milk production/breast feeding has gone well since the of her dtr. P: DC home w/family via pov when medically cleared This T[employer]DS SUPERVISOR will remain available in case DC needs or concerns arise today. ALEXANDRIA Bolden Discharge Planning/Care Management CM Discharge Assessment Start: 01/25/20 12:32 Freq: Status: Active Protocol: Document 01/25/20 12:32 DANTE (Rec: 01/25/20 12:44 DANTE [id number]) Discharge Planning Assessment Assigned Clerk Cashier ALEXANDRIA Wong DPOA/Assigned Designee Name Junior Bonds, spouse Contact Information [phone] Advance Directives? No History Provided By Patient Household Members spouse,children Type of transportation used prior to Drives own vehicle admit Independent with ADL's Yes Is patient alert and oriented? Yes Caregiver for Another Yes: 2 yo and at home Barriers to Discharge No Discharge Plan Home Transportation Arrangement Family Referrals Initiated None needed
[2020-01-25] MEDS: PRENATAL VIT,CALC/IRON/FOLIC 1 TABLET 1 TAB PO (13:15)
--- NOTE | 2020-01-25 13:20 | P.PN_ITS ---
Subjective Subjective Date Patient Seen: 01/25/20 Time Patient Seen: 12:50 Interval history: Spoke with Dr. Carine Dr on-call this morning regarding patient's readmission. Reviewed ED notes, her admission notes and labs. Patient reports feeling much better. Her fever broke last p.m. approximately 2200. Denies any chills, nausea or focal symptoms. No abnormal discharge, lochia light. On review of symptoms, she again reports that she had some chills 2 day prior to admission, not persistent. She developed a low-grade temperature. Then day of admission had the high fever and increased chills. Reports only mild lower abdominal cramping, less than when she was in the hospital. Increase normal cramping when breast-feeding. No general soreness in her lower abdomen. Denies urinary symptoms, cough, nasal congestion, any focal breast tenderness or areas of redness. Breast exam in ED was negative. Only symptoms was the chills with fever and generally felt less well. Exam Vital Signs (past 8 hours): - 01/25/20 08:00 01/25/20 11:00 Temperature 98.2 F 97.5 F L Pulse Rate 99 H 95 H Respiratory Rate 18 18 Blood Pressure 112/71 110/78 Pulse Oximetry 100 99 Oxygen Delivery Method Room Air Oxygen Flow Rate 0 Narrative Exam Narrative: General: Well-appearing female Abdomen: Soft, nontender, nondistended. Fundus U-2, firm, nontender Extremities: Trace pedal edema No calf tenderness. Pelvic ultrasound noted some clots within the uterus, no signs of retained products of conception. Objective Labs Result Diagrams: 01/25/20 06:41 01/25/20 06:41 Labs: Laboratory Results - last 24 hr 01/24/20 01/24/20 01/24/20 18:15 18:15 18:15 WBC 9.1 RBC 4.06 Hgb 12.2 Hct 35.5 L MCV 87.3 MCH 30.0 MCHC 34.4 RDW 15.6 H Plt Count 183 Neut % (Auto) 89.9 H Lymph % (Auto) 5.7 L [place] % (Auto) 3.7 Eos % (Auto) 0.4 L Baso % (Auto) 0.3 Neut # (Auto) 8200 H Lymph # (Auto) 500 L [place] # (Auto) 300 Eos # (Auto) 0 Baso # (Auto) 0 Sodium 134 L Potassium 3.3 L Chloride 105 Carbon Dioxide 22 BUN 7 Creatinine 0.63 Estimated GFR > 60.0 BUN/Creatinine Ratio 11.1 Glucose 114 H Lactate 1.4 Calcium 8.5 Total Bilirubin 0.9 AST 40 H ALT 24 Alkaline Phosphatase 143 H Total Protein 6.7 Albumin 3.4 L Globulin 3.3 Albumin/Globulin Ratio 1.0 Urine RBC Urine WBC Ur Squamous Epith Cells Ur Transition Epith Cell Urine Bacteria Ur Culture Indicated? Random Gentamicin COVID-19 PCR 01/24/20 01/24/20 01/24/20 18:35 18:35 20:50 WBC RBC Hgb Hct MCV MCH MCHC RDW Plt Count Neut % (Auto) Lymph % (Auto) [place] % (Auto) Eos % (Auto) Baso % (Auto) Neut # (Auto) Lymph # (Auto) [place] # (Auto) Eos # (Auto) Baso # (Auto) Sodium Potassium Chloride Carbon Dioxide BUN Creatinine Estimated GFR BUN/Creatinine Ratio Glucose Lactate Calcium Total Bilirubin AST ALT Alkaline Phosphatase Total Protein Albumin Globulin Albumin/Globulin Ratio Urine RBC 30-100/hpf H Urine WBC 30-100/hpf H Ur Squamous Epith Cells 1-5 /hpf Ur Transition Epith Cell 5-10/hpf H Urine Bacteria Occasional (0-1) Ur Culture Indicated? Specimen cultured Random Gentamicin COVID-19 PCR Cancelled Negative 01/25/20 01/25/20 01/25/20 06:41 06:41 08:01 WBC 9.2 RBC 3.95 L Hgb 11.8 L Hct 34.9 L MCV 88.5 MCH 29.9 MCHC 33.8 RDW 15.5 H Plt Count 168 Neut % (Auto) 85.0 H Lymph % (Auto) 9.3 L [place] % (Auto) 4.0 Eos % (Auto) 1.6 L Baso % (Auto) 0.1 Neut # (Auto) 7800 H Lymph # (Auto) 800 L [place] # (Auto) 400 Eos # (Auto) 100 Baso # (Auto) 0 Sodium 135 L Potassium 3.4 Chloride 108 H Carbon Dioxide 21 L BUN 9 Creatinine 0.54 Estimated GFR > 60.0 BUN/Creatinine Ratio 16.7 Glucose 93 Lactate Calcium 7.9 L Total Bilirubin 0.8 AST 44 H ALT 24 Alkaline Phosphatase 111 Total Protein 5.9 L Albumin 2.8 L Globulin 3.1 Albumin/Globulin Ratio 0.9 L Urine RBC Urine WBC Ur Squamous Epith Cells Ur Transition Epith Cell Urine Bacteria Ur Culture Indicated? Random Gentamicin 1.7 COVID-19 PCR Assessment & Plan Assessment and plan (1) fever: Status: Acute Assessment & Plan narrative: fever of unclear etiology, with quick response to IV antibiotics. High fever, but WBC normal. At risk for endometritis since had some uterine clots evacuated immediately after her delivery, but no uterine tenderness. No urinary catheterization during labor since she did not have an epidural, so less risk for UTI. Prelim urine culture has no growth, blood cultures pending. Continue IV gentamicin/clindamycin Continue observation until least 24 hours afebrile.
--- NOTE | 2020-01-25 15:45 | PC.NURSE ---
Addendum entered by Carrie Justice R.N. 01/25/20 22:27: @ 2230 urine with small clots; pt reports 10% pad coverage for entire shift Original Note: IV fluids infusing; Pt sitting up to chair, alert, afebrile, denies pain or SOB; LS clear to bases, O2 MM=484%; SCDs off for activity; encouraged ankle waves and deep breathing; call light within reach
[2020-01-25 16:00] VITALS: BP 120/70; PULSE 86; RESP 20; TEMP 36.3; O2SAT 99
[2020-01-25] MEDS: GENTAMICIN 320 MG in SODIUM CHLORIDE 0.9% 100 ML IV (19:35)
[2020-01-25 21:00] VITALS: BP 118/67; PULSE 82; RESP 20; TEMP 36.4
[2020-01-26 00:23] VITALS: BP 118/68; PULSE 82; RESP 16; TEMP 36.8; O2SAT 99
[2020-01-26] MEDS: CLINDAMYCIN 900 MG/50 ML PIGGYBACK 50 MG IV (06:08)
[2020-01-26] MEDS: ACETAMINOPHEN 325 MG TABLET 650 MG PO (06:13)
--- NOTE | 2020-01-26 06:51 | PC.NURSE ---
Pt had an uneventful night. Afebrile throughout shift. Complained of some bilateral breast pain this morning stating she feels engorged and was not able to pump. Tylenol and warm wash cloths for breasts given in the mean time. Will get into contact with the center for someone to see her today to help
[2020-01-26 07:02] LABS: Gentamicin Random 1.1 ug/mL (1.0-8.0)
[2020-01-26] MEDS: DOCUSATE 100 MG CAPSULE PO (08:08)
[2020-01-26] MEDS: PRENATAL VIT,CALC/IRON/FOLIC 1 TABLET 1 TAB PO (08:08)
[2020-01-26 08:10] VITALS: BP 120/72; PULSE 76; RESP 16; TEMP 36.9; O2SAT 99
--- NOTE | 2020-01-26 09:49 | PM.PN.1 ---
Subjective Subjective Date Patient Seen: 01/26/20 Time Patient Seen: 09:30 Interval history: Patient is feeling well, better. Appetite has returned. Eating a normal diet. Reports breasts have become more engorged and she has been unable to empty the breast with the pump now since the claims auditor. wireless sales consultant called, waiting visit this a.m. Denies fever, chills, nausea or abdominal pain. Exam Vital Signs (past 8 hours): - Afebrile for 36 hours 01/26/20 08:10 Temperature 98.4 F Pulse Rate 76 Respiratory Rate 16 Blood Pressure 120/72 Pulse Oximetry 99 Oxygen Delivery Method Room Air Oxygen Flow Rate 0 Narrative Exam Narrative: General: Well-appearing female Abdomen: Soft, nontender, nondistended. Fundus U-2, firm, nontender Extremities: Trace pedal edema. No calf tenderness. Blood culture no growth x1 day Urine culture no growth x1 day Objective Labs Result Diagrams: 01/25/20 06:41 01/25/20 06:41 Labs: Laboratory Results - last 24 hr 01/26/20 06:35 Random Gentamicin 1.1 Assessment & Plan Assessment and plan (1) fever: Problem details: Unclear etiology, without any significant localizing symptoms. Was at risk for endometritis, so possible source, but never any significant uterine tenderness and no WBC. Prelim urine and blood cultures negative Will discharge home on Augmentin 500 mg p.o. b.i.d. x7 days. Await visit from energy sales consultant, prior to discharge home. Reminded patient to schedule left breast ultrasound, pointed out a left breast lumpectomy on her day 1/2 that she has had for 4-6 weeks prior to delivery. Status: Acute
--- NOTE | 2020-01-26 11:04 | PC.NURSE ---
Addendum entered by Magda Bateman R.N. 01/26/20 12:10: Pt's present to hand picker pt. Pt left unit with all belongings and her 6 bottles of breast milk placed on some ice for ride home. Pt left unit in no distress via wheelchair at 1205 with this service writer advisor. Pt aware to hand picker antibiotic prescription at [facility] in [place]. Addendum entered by Magda Bateman R.N. 01/26/20 11:27: Discharge summary packet reviewed with pt around 1110. Information given on UTI and Endometritis as chills and fever were unknown etiology per Dr's note. No further voiced concerns. Original Note: Day Shift- Consult arrived to pt's room around 1010 and assisted pt with breast pump. Breast pumping was successful. Pt would like to be discharged as soon as she can as her will be coming to pick her up before lunch. No further voiced concerns by pt. Minimal discharge on antonio-pad. Voiding qs.
--- NOTE | 2020-01-26 15:50 | P.DS_ITS ---
History of Present Illness History of Present Illness Date Patient Seen: 01/26/20 Time Patient Seen: 09:30 Date of Onset of Symptoms: 01/24/20 Chief complaint: Chills and Fever Narrative: 29yo readmitted on PPD #4 s/p complicated by mild hemorrhage with manual evacuation of clots immediately , readmitted with high fever and chills. She reported 2 days of intermittent chills at home but she had no fever. On day of admission she had worsening of chills and then felt feverish. Temperature was 102F. She presented for evaluation. She also reports decreased appetite over the past 2 days. Generally felt unwell on day of admission, but without any localizing symptoms. She reported some mild ut erine cramping on questioning but says this was better than in her period, improving. Perineal discomfort was significantly improving. She did feel engorgement with her milk coming in on the day of presentation, but without any focal pain or erythema. Denied any sore throat, nasal congestion, cough or shortness of breath. No urinary symptoms or abnormal vaginal discharge. . Discharge Providers Provider Date of admission: 01/24/20 21:28 Discharge Date: 01/26/20 Primary care physician: Khalida Dill MD Discharge provider: Trish Taylor MD Summary Hospital Course Discharge Diagnosis: fever unclear etiology,improved, possible PP endometritis Hospital Course: On presentation to the ED her temperature was 104? F. She was tachycardic. WBC was only 9.1. UA showed some increased WBC and RBCs, but could be a contaminant with her lochia. Her physical exam was normal except for some minimal tenderness over the uterus on exam by the admitting physician. ED physician did not elicit tenderness in her lower abdomen. Perineal exam, breast exam, chest exam and remainder of her exam was normal. She was admitted. Blood culture x2 and urine culture was drawn. She was started on IV antibiotics, 24 hour gentamicin dosing and clindamycin. Within 2 hours of starting the antibiotics she became afebrile and has remained afebrile for 36 hours. She feels better. Her appetite is improved and she is tolerating regular diet. She has a normal exam. Preliminary blood cultures x 1 day shows no growth. Final urine culture shows no growth. A pelvic ultrasound had shown approximately 4 cm of clot within the uterus. No evidence of retained products of conception. She continues to do well and will be discharged home in good condition. Etiology of fever uncertain without any significant localizing symptoms, but most likely cause with risk factors would be a en dometritis. She will be discharged home on Augmentin 875 mg p.o. b.i.d. x7 days. Status at Discharge Cognitive/behavioral status at discharge: oriented Functional status at discharge: independent ambulation Overall status at discharge: patient is back to baseline Time Spent with Patient Time spent: Less than 30 minutes Exam Vital Signs (past 8 hours): - 01/26/20 08:10 Temperature 98.4 F Pulse Rate 76 Respiratory Rate 16 Blood Pressure 120/72 Pulse Oximetry 99 Oxygen Delivery Method Room Air Oxygen Flow Rate 0 Narrative Exam Narrative: General: Well-appearing female Abdomen: Soft, nontender, nondistended. Fundus U-2, firm, nontender Extremities: Trace pedal edema. No calf tenderness. Objective Labs Result Diagrams: 01/25/20 06:41 01/25/20 06:41 Labs: Laboratory Results - last 24 hr 01/26/20 06:35 Random Gentamicin 1.1 Discharge Plan Discharge Plan Patient Disposition: Home Discharge comment: Remember to schedule the ultrasound of the left breast. production support manager the prescription for antibiotics, amoxicillin/clavulanic acid and take twice daily for 7 days. Discharge orders & Medications Prescriptions: New amoxicillin-pot clavulanate [Augmentin] 875-125 mg tablet 1 tab PO Q12H 7 Days Qty: 14 RF: 0 Continued prenat.vits,yaneth,[id number] Tablet 1 tab PO DAILY RF: 0 acetaminophen 325 mg Tablet 650 mg PO Q4HR PRN (Reason: Fever/Mild Pain (1-3)) Qty: 30 RF: 0 Dermoplast (with menthol) 20-0.5 % Aerosol 1 spray topical Q1HR PRN (Reason: perineal pain) Qty: 54 RF: 0 docusate sodium [DOK] 100 mg Capsule 100 mg PO DAILY Qty: 30 RF: 0 ibuprofen 600 mg Tablet 600 mg PO Q6HR PRN (Reason: Pain, Mild (1-3)) Qty: 30 RF: 0 Ivr-B-Zljudz Cream 1 applic topical PRN PRN (Reason: Tenderness) Qty: 15 RF: 0 Follow up/Referrals: Khalida Dill MD [Primary Care Provider] - Trish Taylor MD [Physician] - 1 Week (Follow-up fever) Discharge Health Status Multidrug resistant organism: No MDRO Diet/Activity/Treatments Diet: Regular Activity: Nothing in the vagina, no tampons and no intercourse for 5 weeks. Call for return of a persistent fever above 100.5? F, chills, fever, persistent nausea or vomiting, lower abdominal pain, any local breast redness or persistent focal breast pain Skin/Wound/Dressing Care Report to your healthcare provider any signs of infection, such as:: chills, fever and increased pain Visit Report/Discharge Packet Instructions: Urinary Tract Infection, DI for Urinary Tract Infection (UTI), DI for Fever (Symptom) -- Adult, DI for Endometritis Visit Report Forms: Patient Portal/API, Stroke Signs & Symptoms Discharge Data Primary Care Provider: Khalida Dill Attending Provider: Ariella Hawk Admit Date/Time: 01/24/20 21:28 Discharges patient from system. Discharge Date/Time: 01/26/20 12:05
--- NOTE | 2020-01-26 18:19 | PM.OBPN.1 ---
Subjective - OB Subjective Patient comments: pain well controlled and tolerating diet [place] baby status: doing well [place] feeding status: exclusively breast feeding Narrative: Checked on patient 1/2 day . She reports doing well from a standpoint. She inquires regarding a left breast lump. She reports that is going fine, but says she has a lump and noticed some lumps in her breast with last when she tried to breastfeed and was not successful without , possible clogged ducts at that time. She reports to me that she noticed a lump in her left breast. First noticed the lump about 6 weeks ago during her . Possibly some increased size now with breast-feeding. Says she told Rai, rn lactation consultant, today, who told her to show me the lump Date Patient Seen: 01/20/20 Time Patient Seen: 18:20 Exam Vital Signs (past 8 hours): Oxygen Delivery Method Room Air Oxygen Flow Rate 0 Narrative Exam Narrative: General: Well-appearing female Exam and semi recumbent position: Left breast with an approximate 4-5 cmx 2 cm oblong, moderately firm lump at approximately 5:00 oclock starting at the edge of the areola and extending laterally. Areas fairly superficial and position. Areas mildly lumpy in palpation, nontender. Does not feel like a clogged duct, and does not feel cystic. Objective Labs Result Diagrams: 01/25/20 06:41 01/25/20 06:41 Labs: Laboratory Results - last 24 hr 01/26/20 06:35 Random Gentamicin 1.1 Assessment & Plan Assessment and Plan (1) Left breast lump: Problem details: May be a larger regular area of fibrocystic tissue, but concern common evaluation to rule out abnormal lump, especially since presented 6 weeks ago and not with the started . Will order a left breast ultrasound for her to schedule . If needed, recommended by Radiology, then would proceed with a diagnostic mammogram. However with weekend and immediate , by time she will do and ultrasound she will be engorged with breast-feeding and mammogram will be more difficult to evaluate. Status: Acute Time Spent With Patient Time: Total time spent is greater than 50% in coordination of care (as documented) at patient's floor/unit and/or counseling patient: Time with patient: less than 15 minutes
--- NOTE | 2020-02-01 23:48 | PC.NURSE ---
Late Entry: Normal Saline infusion initiated on 01/24 at 00:39, infusion complete at 10:39. Gentamicin infusion initiated on 01/24 at 19:35, infusion complete at 20:40.
== END 2020-01-26 12:05 | disposition home or self-care (01) ==
LOC: ED 19:34 → AC 21:30
PROVIDERS: Emergency Medicine; Admitting Provider Family Medicine; Emergency Provider Emergency Medicine; PCP Family Medicine; Referring Provider Emergency Medicine; Visit Provider Family Medicine
DX: O86.4 Pyrexia of unknown origin following delivery (principal); R00.0 Tachycardia, unspecified; N63.20 Unspecified lump in the left breast, unspecified quadrant
CPT/HCPCS: 36415; 76856; 80053; 80170; 81003; 81015; 83605; 85025; 87040; 87086; 87635; 96361; 96365; 96366; 96367; 99284; G0378

== ENCOUNTER → 2020-02-07 12:35 | Outpatient (CLI) | payer OTHER, SELFPAY ==
[2020-01-24 21:39] VITALS: BMI 37.0
--- NOTE | 2020-02-07 12:36 | DI.US.S_ITS ---
COMPLETE ULTRASOUND OF LEFT BREAST AND AXILLA: 02/07/2020 CLINICAL: Lt Breast Palp Lump. No prior exams were available for comparison. Color flow, real-time, and Doppler ultrasound of the left breast four quadrants, retroareolar, and axilla regions were performed. Enriquez scale images of the real-time examination were reviewed. There is a 6 cm x 2.2 cm x 5.6 cm wider than tall oval solid mass with a circumscribed margin in the left breast extending from 2 o'clock to 5 o'clock middle depth with the long axis parallel to the skin. This oval solid mass is of mixed echogenicity. Color flow imaging demonstrates that there is increased vascularity. This correlates as palpated. IMPRESSION: SUSPICIOUS OF MALIGNANCY The 6 cm x 2.2 cm x 5.6 cm wider than tall oval solid mass in the left breast is at a low suspicion for malignancy. It may represent a lactating adenoma, PASH, or less likely a phyllodes tumor. An ultrasound guided biopsy is recommended. Findings and recommendations were discussed with the patient by Dr. Elías Solorzano at time of exam. This exam was interpreted at Station ID: [id number]. Electronically Signed By: Mattie galvan/:02/07/2020 15:30:00 letter sent: Biopsy Required Ultrasound BI-RADS: 4a Low suspicion for malignancy
== END ==
PROVIDERS: PCP Family Medicine; Referring Provider Obstetrics & Gynecology; Visit Provider Obstetrics & Gynecology
DX: R92.8 Other abnormal and inconclusive findings on diagnostic imaging of breast (principal); N63.23 Unspecified lump in the left breast, lower outer quadrant
CPT/HCPCS: 76642